=== PATIENT | female | born 1950 | race Caucasian/White ===

== ENCOUNTER 2016-11-08 17:30 | Emergency (ER) | payer MEDICARE ==
[2016-11-08 17:38] VITALS: BP 167/104; PULSE 85; RESP 18; TEMP 98.6
[2016-11-08] MEDS ORDERED: valACYclovir 500 MG TAB PO STA (17:38)
--- NOTE | 2016-11-08 17:41 | ED ---
General Adult HPI - General Chief complaint: Neuro Symptoms/Deficit Stated complaint: Poss stroke Time Seen by Provider: 11/08/16 17:32 Source: EMS, RN notes reviewed, old records reviewed Mode of arrival: EMS Limitations: no limitations - History of Present Illness Initial comments: This is a 66-year-old female here for evaluation of left-sided neurological complaint. Left-sided facial droop. Patient's Ringer's of the hospitalist. No prior history of high blood pressure not claustrum of diabetes, no travel. No fevers. Mild upper respiratory infection as of recent, no ear pain. No dizziness or vertiginous symptoms. Patient states she noted left-sided facial droop today, May has progressively worsened throughout the day. - Related Data Previous Rx's Medication Instructions Recorded predniSONE 50 mg PO DAILY #7 tab 11/08/16 valACYclovir HCL [Valtrex] 1,000 mg PO Q8HR #21 tab 11/08/16 Allergies Allergy/AdvReac Type Severity Reaction Status Date / Time Penicillins Allergy Rash/Hives Verified 11/08/16 17:39 Sulfa (Sulfonamide Allergy Rash/Hives Verified 11/08/16 17:39 Antibiotics) Review of Systems ROS Statement: Those systems with pertinent positive or pertinent negative responses have been documented in the HPI. ROS Other: All systems not noted in ROS Statement are negative. Past Medical History Past Medical History: COPD, Osteoarthritis (OA) History of Any Multi-Drug Resistant Organisms: None Reported Past Surgical History: No Surgical Hx Reported Past Psychological History: Anxiety Smoking Status: Current every day smoker Past Alcohol Use History: None Reported Past Drug Use History: None Reported General Exam - General Exam Comments Initial Comments: Left facial droop, enabled biliary close left eye, left-sided lip droop, inability is mild left-sided face, in able to will raise left eyebrow, forehead is included Limitations: no limitations General appearance: alert, in no apparent distress Head exam: Present: atraumatic, normocephalic, normal inspection Eye exam: Present: normal appearance, PERRL, EOMI. Absent: scleral icterus, conjunctival injection, periorbital swelling ENT exam: Present: normal exam, mucous membranes moist Neck exam: Present: normal inspection. Absent: tenderness, meningismus, lymphadenopathy Respiratory exam: Present: normal lung sounds bilaterally. Absent: respiratory distress, wheezes, rales, rhonchi, stridor Cardiovascular Exam: Present: regular rate, normal rhythm, normal heart sounds. Absent: systolic murmur, diastolic murmur, rubs, gallop, clicks GI/Abdominal exam: Present: soft, normal bowel sounds. Absent: distended, tenderness, guarding, rebound, rigid Extremities exam: Present: normal inspection, full ROM, normal capillary refill. Absent: tenderness, pedal edema, joint swelling, calf tenderness Back exam: Present: normal inspection Neurological exam: Present: alert, oriented X3, CN II-XII intact Psychiatric exam: Present: normal affect, normal mood Skin exam: Present: warm, dry, intact, normal color. Absent: rash Course Vital Signs 11/08/16 17:36 Temperature 98.6 F Pulse Rate 85 Respiratory 18 Rate Blood Pressure 167/104 O2 Sat by Pulse 98 Oximetry EKG Findings - EKG Comments: EKG Findings:: EKG shows normal sinus or mastoid I, NV 152, QRS 132, QTc 470 Medical Decision Making - Medical Decision Making 60 female to the [facility] ER with severe left sided facial droop, patient does have symptoms that are consistent with Maher's palsy. Patient was treated appropriately for Maher's palsy and discharged home - Lab Data Lab Results 11/08/16 Range/Units 17:35 POC Glucose (mg/dL) 90 (75-99) mg/dL POC Glu Skate Maker ID Cody Daniel Disposition Clinical Impression: Maher's palsy Disposition: HOME SELF-CARE Condition: Good Instructions: Maher Palsy (ED) Prescriptions: predniSONE 50 mg PO DAILY #7 tab valACYclovir HCL [Valtrex] 1,000 mg PO Q8HR #21 tab Referrals: Niurka Delcid MD [Primary Care Provider] - 1-2 days
[2016-11-08 17:42] LABS: Glucose,Whole Blood 90 mg/dL (75-99)
[2016-11-08] MEDS ORDERED: valACYclovir HCL 1,000 MG TABLET PO ONE (18:00)
== END 2016-11-08 18:17 | disposition home or self-care (01) ==
LOC: EC 17:30
DX: G51.0 Bell's palsy (principal); F17.200 Nicotine dependence, unspecified, uncomplicated; Z88.0 Allergy status to penicillin; Z88.2 Allergy status to sulfonamides
CPT/HCPCS: 36415; 93005; 99284

== ENCOUNTER → 2016-12-01 | Outpatient (CLI) | payer MEDICARE ==
--- NOTE | 2016-12-02 14:17 | XR ---
EXAMINATION TYPE: XR chest 2V DATE OF EXAM: 12/01/2016 1:02 PM COMPARISON: Prior chest x-ray fourth December 2014 HISTORY: COPD and shortness of breath TECHNIQUE: Frontal and lateral views of the chest are obtained. FINDINGS: There is no focal air space opacity, pleural effusion, or pneumothorax seen. The cardiac silhouette size is within normal limits. Prominent lung volume may be indicative of COPD. There is likely a spinal curvature. The osseous structures are intact. IMPRESSION: No acute cardiopulmonary process.
== END ==
LOC: RADXRYALE 12:51
PROVIDERS: ATTEND Nurse Practitioner Family
DX: R06.02 Shortness of breath (principal)
CPT/HCPCS: 71020

== ENCOUNTER → 2017-09-11 | Outpatient (CLI) | payer MEDICARE ==
--- NOTE | 2017-09-11 13:34 | XR ---
EXAMINATION TYPE: XR chest 2V DATE OF EXAM: 09/11/2017 COMPARISON: 12/01/2016 TECHNIQUE: PA and lateral views submitted. HISTORY: COPD FINDINGS: The lungs are clear and there is no pneumothorax, pleural effusion, or focal pneumonia. Mild hyperi nflation correlate for COPD. Degenerative change of the spine noted. Ectasia of the aorta noted. IMPRESSION: 1. No acute process.
== END | disposition home or self-care (01) ==
LOC: RADXRYALE 13:01
PROVIDERS: ATTEND Internal Medicine
DX: R76.11 Nonspecific reaction to tuberculin skin test without active tuberculosis (principal)
CPT/HCPCS: 71046

== ENCOUNTER → 2018-09-08 | Outpatient (CLI) | payer MEDICARE ==
[2018-09-08 13:08] LABS: Blood Urea Nitrogen 10 mg/dL (7-17)
--- NOTE | 2018-09-08 22:14 | CT ---
EXAMINATION TYPE: CT angio thor/abd pel aorta DATE OF EXAM: 09/08/2018 COMPARISON: None. HISTORY: Thoracic abd aneurysm CT DLP: 1952 mGycm. Automated Exposure Control for Dose Reduction was Utilized. CONTRAST: CTA scan of the thorax, abdomen and pelvis is performed without oral and without and with IV Contrast , patient injected with 100 mL of Isovue 370. Aneurysm protocol with 3-D reconstructed images created on an independent workstation and reviewed. FINDINGS: VASCULAR: Central pulmonary arteries show satisfactory opacification without suspicious dilatation. Ascending aorta measures up to 3.6 cm in diameter on axial image 27. There is normal 3 vessel origin from the aortic arch. There is ectatic course with mild to moderate mixed plaque of the descending th oracic aorta. No linear hypodensity to suggest dissection is present. There is patent celiac artery, SMA, bilateral single renal arteries as well as JELLY which shows comple te occlusion shortly after its origin. There is focal aneurysm of the infrarenal abdominal aorta jocelyne uring 3.9 cm AP diameter by 3.8 cm transversely axial image 74. The length of the aneurysm is 7 to 8 cm not extending into bifurcation. There is moderate mixed plaque at this level. Common iliac arterie s show moderate to severe calcified plaque without significant stenosis with more prominent plaque ex tending into the internal iliac arteries. Right internal iliac artery shows focal prominence or aneur ysm up to 1.1 cm axial image 93. External iliac arteries show mild plaque. There is more moderate to severe plaque in the common femoral arteries at the bilateral groin region. There is branching into s uperficial and deep femoral arteries without significant stenosis. LUNGS: Moderate underlying emphysematous changes present. No suspicious focal consolidation is seen. No suspicious parenchymal nodule or masses are noted. There is no pleural effusion or pneumothorax seen. The tracheobronchial tree is patent. MEDIASTINUM: There are no greater than 1 cm hilar or mediastinal lymph nodes. No cardiomegaly or pe ricardial effusion is seen. There is suspicious greater than 3 cm heterogeneous hypodense right thyr oid nodule bulging margins of the thyroid. Moderate to severe three-vessel coronary artery calcificat ion is identified which is noted marker for coronary artery disease. OTHER: No additional significant abnormality is seen. LIVER/GB: Cholecystectomy clips are noted. PANCREAS: No significant abnormality is seen. SPLEEN: No significant abnormality is seen. ADRENALS: No significant abnormality is seen. KIDNEYS: No significant abnormality is seen. BOWEL: No significant abnormality is seen. GENITAL ORGANS: Slightly retroverted uterus is seen. Scattered pelvic phlebolith are present. LYMPH NODES: No greater than 1cm abdominal or pelvic lymph nodes are appreciated. OSSEOUS STRUCTURES: There is levoconvex scoliosis centered in the mid lumbar spine. There is multilev el [id number] disc space narrowing with moderate to severe spurring and endplate sclerosis mo st prominent at L2-L3 level. There is prominent facet arthropathy in the lower lumbar spine.. OTHER: No significant additional abnormality is seen. IMPRESSION: 1. Ectasia/mild aneurysm of ascending aorta up to 3.6 cm in diameter. There is ectatic course to the ascending thoracic aorta. There is moderate length aneurysm of the infrarenal abdominal aorta measuri ng up to 3.9 cm in diameter. 2. Suspicious at least 3 cm right thyroid nodule bulging thyroid margins in which neoplasm cannot be excluded. Advise ultrasound correlation and FNA based on clinical correlation.
== END | disposition home or self-care (01) ==
LOC: RADCTMAIN 11:59
PROVIDERS: ATTEND Internal Medicine
DX: I71.4 Abdominal aortic aneurysm, without rupture (principal); I77.810 Thoracic aortic ectasia; I71.2 Thoracic aortic aneurysm, without rupture
CPT/HCPCS: 82565; 84520; 71275; 36415; 74174; Q9967

== ENCOUNTER 2020-03-09 10:11 | Emergency (ER) | payer MEDICARE ==
[2020-03-09 10:24] VITALS: RESP 18; TEMP 98.8
[2020-03-09] MEDS ORDERED: ORPHENADRINE 30 MG/ML 2 ML VIAL IVP STA (11:16)
[2020-03-09] MEDS ORDERED: IPRATROPIUM-ALBUTEROL 3 ML NEB INHALATION STA (12:01)
[2020-03-09] MEDS ORDERED: ONDANSETRON 4 MG/2 ML VIAL IVP STA (12:03)
[2020-03-09] MEDS ORDERED: MORPHINE SULFATE 4 MG/ML SYRINGE IVP STA (12:03)
--- NOTE | 2020-03-09 12:06 | XR ---
EXAMINATION TYPE: XR lumbosacral spine min 4V DATE OF EXAM: 03/09/2020 CLINICAL HISTORY: pain COMPARISON: NONE TECHNIQUE: Frontal, lateral, and oblique images of the lumbar spine are obtained. FINDINGS: Severe multilevel degenerative disc disease and spondylosis. Vacuum disc with endplate scl erosis. Severe facet joint arthropathy. No evidence for compression fracture or malalignment. Curvatu re seen convex to the left. The overlying soft tissue appears unremarkable. IMPRESSION: No acute fracture or dislocation is seen in the lumbar spine.ICD 10 NO FRACTURE, INITIAL EVALUATION
--- NOTE | 2020-03-09 12:13 | ED ---
Lower Extremity Injury HPI - General Chief Complaint: Extremity Injury, Lower Stated Complaint: Leg Spasms/Pain Time Seen by Provider: 03/09/20 11:01 Source: patient, EMS, RN notes reviewed Mode of arrival: EMS Limitations: no limitations - History of Present Illness Initial Comments: This a 69-year-old female presents emergency from chief complaint of left leg pain. Patient states that she has a history of sciatica. Patient states that over the last week she's been having worsening pain. Patient states she's been having spasms of her back, leg on her left side of her knee. This is very consistent with her prior symptoms. She denies any bowel incontinence or bladder retention. Denies any abdominal pain no discoloration or paresthesias. She states pain is worse when she stands she is able to ambulate but causes pain. Patient denies fevers or chills no trauma. Patient states that she is to go to the chiropractor on a regular basis. Patient has no dysuria no hematuria - Related Data Home Medications Medication Instructions Recorded Confirmed Albuterol Nebulized [Ventolin 2.5 mg INHALATION RT-QID 03/09/20 03/09/20 Nebulized] Ascorbic Acid [Vitamin C] 500 mg PO DAILY 03/09/20 03/09/20 Gabapentin [Neurontin] 400 mg PO BID 03/09/20 03/09/20 Guaifenesin/Dextromethorphan 1 tab PO DAILY 03/09/20 03/09/20 [Mucinex Dm ER 1,200-60 mg Tab] Naproxen 500 mg PO BID 03/09/20 03/09/20 Omeprazole 20 mg PO DAILY 03/09/20 03/09/20 buPROPion XL [Wellbutrin Xl] 150 mg PO BID 03/09/20 03/09/20 Previous Rx's Medication Instructions Recorded Cyclobenzaprine [Flexeril] 10 mg PO TID PRN #15 tab 03/09/20 Hydrocodone/Acetaminophen [Dyer 1 tab PO Q6HR PRN #12 tab 03/09/20 5-325] Ibuprofen [Motrin] 600 mg PO Q8HR PRN #20 tab 03/09/20 Allergies Allergy/AdvReac Type Severity Reaction Status Date / Time Penicillins Allergy Rash/Hives Verified 03/09/20 11:40 Sulfa (Sulfonamide Allergy Rash/Hives Verified 03/09/20 11:40 Antibiotics) Review of Systems ROS Statement: Those systems with pertinent positive or pertinent negative responses have been documented in the HPI. ROS Other: All systems not noted in ROS Statement are negative. Past Medical History Past Medical History: COPD, Osteoarthritis (OA) History of Any Multi-Drug Resistant Organisms: None Reported Past Surgical History: No Surgical Hx Reported Past Psychological History: Anxiety Smoking Status: Current every day smoker Past Alcohol Use History: None Reported Past Drug Use History: None Reported General Exam Limitations: no limitations General appearance: alert, in no apparent distress Head exam: Present: atraumatic, normocephalic, normal inspection Eye exam: Present: normal appearance, PERRL, EOMI. Absent: scleral icterus, conjunctival injection, periorbital swelling Neck exam: Present: normal inspection, full ROM. Absent: tenderness Respiratory exam: Present: normal lung sounds bilaterally. Absent: respiratory distress, wheezes, rales, rhonchi, stridor Cardiovascular Exam: Present: regular rate, normal rhythm, normal heart sounds. Absent: systolic murmur, diastolic murmur, rubs, gallop, clicks GI/Abdominal exam: Present: soft, normal bowel sounds. Absent: distended, tenderness, guarding, rebound, rigid Back exam: Present: full ROM (Mild discomfort with range of motion), tenderness (Left lower lumbar), paraspinal tenderness. Absent: CVA tenderness (R), CVA tenderness (L), vertebral tenderness Neurological exam: Present: alert, oriented X3, CN II-XII intact, reflexes normal. Absent: motor sensory deficit Skin exam: Present: warm, dry, intact, normal color. Absent: rash Course Vital Signs 03/09/20 03/09/20 03/09/20 10:20 10:30 11:00 Temperature 98.8 F Pulse Rate 81 77 79 Respiratory 18 Rate Blood Pressure 160/99 160/99 161/87 O2 Sat by Pulse 98 99 99 Oximetry 03/09/20 03/09/20 12:10 12:17 Temperature Pulse Rate 84 88 Respiratory Rate Blood Pressure O2 Sat by Pulse Oximetry Medical Decision Making - Medical Decision Making X-rays were reviewed by radiologist shows degenerative changes. Patient symptoms are consistent with lumbar radiculopathy. Patient has a history of sciatica. Patient has no red flag symptoms. Patient will be discharged in stable condition with close follow-up she agrees with this with pain medication. Disposition Clinical Impression: Lumbar radiculopathy, acute Disposition: HOME SELF-CARE Condition: Stable Instructions (If sedation given, give patient instructions): Lumbar Radiculopathy (ED) Additional Instructions: Please return to the Emergency Department if symptoms worsen or any other concerns. Prescriptions: Cyclobenzaprine [Flexeril] 10 mg PO TID PRN #15 tab PRN Reason: Muscle Spasm Ibuprofen [Motrin] 600 mg PO Q8HR PRN #20 tab PRN Reason: Pain Hydrocodone/Acetaminophen [Dyer 5-325] 1 tab PO Q6HR PRN #12 tab PRN Reason: Pain Is patient prescribed a controlled substance at d/c from ED?: Yes When asked, does pt state using other controlled substances?: No If prescribed controlled substance>3 days was MAPS reviewed?: Prescribed <3 Days If opioid is for acute pain is fill amount 7 days or less?: Yes If Rx opioid, was Start Talking consent form obtained?: Yes Referrals: Niurka Delcid MD [Primary Care Provider] - 1-2 days Chandana Mercado DO [Doctor of Osteopathic Medicine] - 1-2 days Time of Disposition: 13:06
[2020-03-09] MEDS ORDERED: DIAZEPAM 5 MG/ML 2 ML INJ IVP STA (13:25)
[2020-03-09 13:44] VITALS: BP 102/68; PULSE 70
== END 2020-03-09 14:14 | disposition home or self-care (01) ==
LOC: EC 10:11
DX: M47.26 Other spondylosis with radiculopathy, lumbar region (principal); J44.9 Chronic obstructive pulmonary disease, unspecified; F41.9 Anxiety disorder, unspecified; M19.90 Unspecified osteoarthritis, unspecified site; F17.200 Nicotine dependence, unspecified, uncomplicated; Z79.1 Long term (current) use of non-steroidal anti-inflammatories (NSAID); Z79.899 Other long term (current) drug therapy; Z88.2 Allergy status to sulfonamides; Z88.0 Allergy status to penicillin
CPT/HCPCS: 94640; 72110; 99284; 96374; 96375 ×3; J2270; J2360; J3360; J2405

== ENCOUNTER → 2020-03-20 | Outpatient (CLI) | payer MEDICARE ==
[2020-03-20 16:49] LABS: African American GFR (CKD) >90 (>60 ml/min/1.73 sqM); Blood Urea Nitrogen 11 mg/dL (7-17); Non-African American GFR(CKD) 84 (>60 ml/min/1.73 sqM)
--- NOTE | 2020-03-21 10:01 | CT ---
EXAMINATION TYPE: CT ChestAbdPelvis w con DATE OF EXAM: 03/20/2020 COMPARISON: CTA thorax abdomen pelvis 09/08/2018 HISTORY: abdominal pain. hx of hernia, AAA. CT DLP: 1074.5 mGycm Automated exposure control for dose reduction was used. CONTRAST: CT scan of the chest, abdomen and pelvis is performed with Oral Contrast and with IV Contrast, patien t injected with 100 mL of Isovue 300. Delayed imaging through the abdomen with coronal reformat was o btained. FINDINGS: LUNGS: The lungs are grossly clear, there is no concerning parenchymal mass or nodule identified. Ce ntrilobular emphysematous changes and air trapping redemonstrated. There is no pleural effusion or pn eumothorax seen. The tracheobronchial tree is patent. MEDIASTINUM: There are no greater than 1 cm hilar or mediastinal lymph nodes. No pericardial effusi on is seen. Cardiac size normal. Thoracic ascending aorta measures up to 3.3 cm, within normal limi ts for size. Atherosclerotic changes of the aorta. Calcified coronary artery disease. OTHER: Redemonstrated 2.7 x 3.1 cm right thyroid nodule. LIVER/GB: Normal liver. Status post cholecystectomy. No biliary ductal dilatation. PANCREAS: Normal. SPLEEN: Normal. ADRENALS: 1.1 cm right adrenal nodule, with Hounsfield units of 10 on 09/08/2018 comparison, most like ly benign adrenal adenoma. Normal left adrenal gland. KIDNEYS: Normal right kidney. There is asymmetric appearance of the anterior collecting system of the lower pole of the left kidney measuring approximately 1.9 x 3.2 x 2.6 cm, which does not demonstrate excreted contrast on delayed imaging. Too small to characterize hypodense lesions of the left kidney . BOWEL: No evidence of obstruction or thickening. PELVIS: Normal urinary bladder. Atrophic uterus versus hysterectomy. LYMPH NODES: No greater than 1 cm abdominal or pelvic lymph nodes are appreciated. VASCULATURE: Infrarenal abdominal aortic aneurysm unchanged measuring up to 3.9 cm. Calcified and non calcified atherosclerotic aortobiiliac changes. PERITONEUM: No pneumoperitoneum or ascites. MUSCULOSKELETAL: Thinning of the right rectus abdominis muscles likely status post herniorrhaphy. Deg enerative changes of the spine. Levoscoliosis of the lumbar spine. Grade 1 anterolisthesis of L4 on L 5. IMPRESSION: 1. Unchanged 3.9 cm infrarenal abdominal aortic aneurysm versus 09/08/2018 comparison. No aneurysmal d ilatation of the thoracic aorta. 2. Asymmetric anterior lower pole left kidney collecting system measuring 1.9 x 3.2 x 2.6 cm, which d oes not fill with excreted contrast on delayed imaging. Findings may represent layering excreted cont rast posteriorly to the dilated portion, however differential includes urothelial mass lesion and/or partial obstruction of the left renal lower pole. Dedicated CT urogram is recommended. 3. Large 3.1 cm heterogenous right thyroid nodule. Recommend dedicated thyroid ultrasound if not alre juan carlos performed at outside institution. A Yellow level critical message alert has been initiated for Niurka Delcid MD via the [employer] Critical Results System on 03/21/2020 9:58 AM. This message alert has been sent to Niurka Delcid MD via the preferences provided by the clinician for the receipt of Radiology Critical Findings. Message ID [id number].
== END | disposition home or self-care (01) ==
LOC: RADCTMAIN 15:59
PROVIDERS: ATTEND Internal Medicine
DX: I71.4 Abdominal aortic aneurysm, without rupture (principal); E04.1 Nontoxic single thyroid nodule; Z01.818 Encounter for other preprocedural examination
CPT/HCPCS: 82565; 84520; 71260; 74177; 36415; Q9967

== ENCOUNTER → 2020-03-29 | Outpatient (CLI) | payer MEDICARE ==
--- NOTE | 2020-03-29 14:20 | US ---
EXAMINATION TYPE: US thyroid st tissue head/neck DATE OF EXAM: 03/29/2020 COMPARISON: CT March 20, 2020 CLINICAL HISTORY: E04.1 Thyroid nodule. Thyroid nodule GLAND SIZE: Right Lobe: 5.5 x 2.6 x 3.0 cm Overall Parenchyma: homogenous Left Lobe: 3.8 x 1.1 x 1.3 cm Overall Parenchyma: homogeneous Isthmus Thickness: 0.3 cm NODULES RIGHT: # of nodules measured on right: 1 1. 3.7 X 2.4 x 3.1 cm hyperechoic solid appearing nodule at the mid pole with well-defined margins. This nodule is wider than tall and shows peripheral vascularity. Lesion correlates with area of concern on recent CT. LEFT: # of nodules measured on left: 0 ISTHMUS: # of nodules measured in the isthmus: 0 Bilateral neck scanned, no evidence of lymphadenopathy. IMPRESSION: There is dominant 3.7 cm lower pole right thyroid nodule. TR 3 lesion. FNA advised in these lesions greater than 2.5 cm.
== END | disposition home or self-care (01) ==
LOC: RADUSWWP 13:24
PROVIDERS: ATTEND Internal Medicine
DX: E04.1 Nontoxic single thyroid nodule (principal)
CPT/HCPCS: 76536

== ENCOUNTER → 2020-04-17 | Outpatient (CLI) | payer MEDICARE ==
--- NOTE | 2020-04-17 10:11 | CT ---
EXAMINATION TYPE: CT urogram wo/w con DATE OF EXAM: 04/17/2020 HISTORY: Left renal mass CT DLP: 2414mGycm Automated Exposure Control for Dose Reduction was Utilized. CONTRAST: CT scan of the abdomen and pelvis is performed without oral and without and with IV Contrast, patient injected with 100 mL of Isovue 300. Urogram protocol with 3-D reconstructed images created on an ind [employer] workstation and reviewed. COMPARISON: CT March 20, [address] September 08, 2018. FINDINGS: KUB: No renal calculi identified on noncontrast CT. Dynamic postcontrast images show symmetric cortic al medullary uptake and excretion from both kidneys with new mild right-sided hydronephrosis and more prominent moderate to severe left-sided hydronephrosis. There is mild proximal right hydroureter wit h gradual tapering, no definitive filling defect or calculus. Scattered bilateral pelvic phleboliths. There is abrupt transition into nondilated ureter at site of infrarenal AAA. Poorly opacified mid to distal left ureter which is nondilated. Multiple bilateral pelvic phleboliths noted. No intraluminal mass suspicious wall thickening in the bladder identified. No concerning renal mass in either kidney . Occasional tiny subcentimeter hypodense lesions scattered throughout the left kidney are presumably benign. LUNG BASES: No significant abnormality is appreciated. LIVER/GB: Cholecystectomy clips are redemonstrated. PANCREAS: No significant abnormality is seen. SPLEEN: No significant abnormality is seen. ADRENALS: No significant abnormality is seen. BOWEL: Low-lying cecum into the anterior right pelvis redemonstrated. No suspicious small or large williams wel dilatation. UTERUS/ADNEXA: Slightly retroflexed uterus. Scattered multiple bilateral pelvic phleboliths noted. LYMPH NODES: No greater than 1cm abdominal or pelvic lymph nodes are appreciated. OSSEOUS STRUCTURES: Prominent levoconvex scoliosis with multilevel severe disc space narrowing and sp urring along with endplate sclerosis greatest left L1-L2 and L2-L3 and right L3-L4 and L4-L5 levels. Multilevel spur disc complexes and facet arthropathy contribute to multilevel spinal canal stenosis. Stable grade 1 anterolisthesis L4 on L5. OTHER: Redemonstration of a fairly long segment AAA measuring roughly 8 to 9 cm in length not extendi ng into the iliac artery bifurcation measuring up to 4.0 x 4.0 cm arch measures 31 with moderate to s evere peripheral mixed plaque. I do measure some interval growth from September 08, 2018 CT. IMPRESSION: New mild right-sided hydronephrosis. More prominent moderate to severe left-sided hydrone phrosis. No delayed excretion noted. No significant distal hydroureter bilaterally. Findings may be o n basis of enlarging AAA with mass effect causing some obstructive hydronephrosis greater on the left . Advise endovascular surgical referral.
== END | disposition home or self-care (01) ==
LOC: RADCTMAIN 07:23
PROVIDERS: ATTEND Urology
DX: N13.30 Unspecified hydronephrosis (principal); Z88.0 Allergy status to penicillin; Z88.2 Allergy status to sulfonamides
CPT/HCPCS: 82565; 84520; 74178; 36415; 74400; Q9967